=== PATIENT | male | born 1980 ===

== ENCOUNTER 2024-10-10 00:57 | Emergency (ER) | payer OTHER ==
[2024-10-10] MEDS ORDERED: methylPREDNISolone sod succ 125 MG VIAL IM ONE (02:00)
[2024-10-10] MEDS ORDERED: ZITHROMAX250 MG PO (02:09)
[2024-10-10] MEDS ORDERED: PREDNISONE20 M1 PO (02:09)
== END 2024-10-10 02:12 | disposition home or self-care (01) ==
LOC: ED 00:57
DX: B34.9 Viral infection, unspecified (principal); Z20.822 Contact with and (suspected) exposure to COVID-19